=== PATIENT | female | born 1980 | race Caucasian/White ===

== ENCOUNTER → 2019-06-02 | Outpatient (CLI) | payer OTHER ==
--- NOTE | 2019-06-02 08:34 | MR ---
EXAMINATION TYPE: MR brain wo con DATE OF EXAM: 06/02/2019 COMPARISON: NONE HISTORY: Seizures TECHNIQUE: T1-weighted sagittal, T2, FLAIR, and diffusion axial, and T2 coronal coronal views of the brain are submitted. FINDINGS: There is no evidence of acute ischemia. The ventricles, basal cisterns, and sulci overlying the conv exities are consistent with the patient's age. There is no mass effect. Craniocervical junction maintained. Sella turcica has a normal appearance. No cerebellopontine angle mass. Changes of chronic sinusitis. Approximately or areas of abnormal sign al seen within the white matter nonspecific questionable significance the largest measuring 4 mm righ t temporal lobe. Partially empty sella turcica noted cerebellar tonsils are at the level of the guy en magnum. Temporal lobes are symmetric in size. Cortical thickness is symmetric. No mass effect. IMPRESSION: 1. Partially empty sella turcica. Cerebellar tonsils are low-lying in position at the level of forame n magnum. Trace amount of fluid surrounding the optic nerves correlate with ophthalmic papilledema. T his can occasionally be seen with benign increased intracranial pressure. No orbital flattening. 2. Chronic sinusitis. 3. Minimal nonspecific white matter changes as discussed above.
== END | disposition home or self-care (01) ==
LOC: RADMRIMAIN 07:15
PROVIDERS: ATTEND Psychiatry & Neurology Neurology
DX: R90.89 Other abnormal findings on diagnostic imaging of central nervous system (principal); G93.89 Other specified disorders of brain
CPT/HCPCS: 70551